=== PATIENT | male | born 1965 | race Caucasian/White ===

== ENCOUNTER → 2025-02-17 | Day surgery (SDC) | payer OTHER ==
[~2025-02-17] MED LIST: ACETAMINOPHEN 1000 MG/100 ML 100 ML IV ONE; DEXAMETHASONE SOD PHOS INJ 4 MG/ML SDV ONE; FENTANYL CITRATE/PF 100MCG/2 ML INJ ONE; LIDOCAINE HCL 2% LOCAL INJ 5 ML SDV VIAL INJ ONE; MIDAZOLAM HCL 2 MG/2 ML VIAL ONE; ONDANSETRON HCL INJ 2MG/ML 2ML 2 MG/ML VIAL ONE; PROPOFOL IV EMULSION 10 MG/ML 20 ML VIAL ONE; ROCURONIUM BROMIDE 1 ML IV ONE; SUGAMMADEX SODIUM 200 MG/2 ML VIAL IV ONE; TYLENOL325 MG PO
[2025-02-17] MEDS: LACTATED RINGER'S 1,000 ML ONE (08:28)
[2025-02-17 09:01] LABS: BASOPHILS % 1.0 % (0.0-1.0); EOSINOPHILS % 1.7 % (0.0-6.0); LYMPHOCYTES % 30.5 % (18.0-39.1); MONOCYTES % 6.9 % (4.4-11.3); NEUTROPHILS % 59.7 % (38.7-80.0); RED CELL DISTRIBUTION WIDTH 14.1 % (11.7-14.4)
[2025-02-17 09:29] LABS: EST GLOMERULAR FILTRATION RATE 98.0 ML/MIN (>=60)
[2025-02-17 09:37] LABS: INR 0.87
[2025-02-17] MEDS: FENTANYL CITRATE/PF 100MCG/2 ML INJ ONE (11:24)
[2025-02-17 12:20] VITALS: BP 146/85; PULSE 63; RESP 18; O2SAT 99
== END | disposition home or self-care (01) ==
LOC: OR 06:58
PROVIDERS: ATTEND Otolaryngology Otolaryngology/Facial Plastic Surgery
DX: C09.1 Malignant neoplasm of tonsillar pillar (anterior) (posterior) (principal); C05.1 Malignant neoplasm of soft palate; H92.01 Otalgia, right ear; K14.8 Other diseases of tongue; A63.0 Anogenital (venereal) warts; I45.10 Unspecified right bundle-branch block; R00.1 Bradycardia, unspecified; M19.90 Unspecified osteoarthritis, unspecified site; F17.210 Nicotine dependence, cigarettes, uncomplicated
CPT/HCPCS: 31535; 36415; 42826; 43191; 71046; 80048; 85025; 85610; 85730; 88304; 93005; J0131; J1100; J2003; J2250; J2405; J2704; J3010; J7121; 88305; 88342